=== PATIENT | female | born 1980 | race Native Hawaiian/Other Pacific Islander ===

== ENCOUNTER 2022-03-07 19:15 | Emergency (ER) | payer SELFPAY ==
[2022-03-07 19:32] VITALS: BP 134/83; PULSE 96; RESP 16; TEMP 35.6; O2SAT 98; BMI 51.0
[2022-03-07 21:21] LABS: Influenza A - CEPHEID Flu A POSITIVE (NEGATIVE); Influenza B - CEPHEID Flu B NEGATIVE (NEGATIVE); Respiratory Syncytial Virus Negative (Negative)
[2022-03-07 21:28] LABS: COVID-19 CEPHEID 4-PLEX PCR Negative (Negative)
--- NOTE | 2022-03-07 23:31 | ED.URI ---
HPI - URI/Sore Throat General Chief Complaint: Upper Respiratory Symptoms Stated Complaint: fever & cough for 2 months Time Seen by Provider: 03/07/22 23:10 Source: patient Mode of arrival: Ambulatory History of Present Illness HPI Narrative: This 41-year-old woman comes to the ER today with symptoms of cough and congestion for a month. She says her is hospitalized now in the ICU in [place]. She is been sick perpetually for these last 2 months with cough and congestion and shortness of breath. Fever intermittently and most recently a number of days ago. She is had no vomiting, no diarrhea, no rash. She denies any chronic health conditions of any kind. She does not smoke cigarettes. Related Data Previous Rx's Medication Instructions Recorded azithromycin 250 mg tablet 250 mg PO SEE INSTRUCTIONS #6 tabs 01/26/17 (Zithromax) benzonatate 100 mg capsule 100 mg PO BIDP PRN #20 caps 01/26/17 (Tessalon Perles) oseltamivir 75 mg capsule (Tamiflu) 75 mg PO BID 5 days #10 caps 03/07/22 Allergies Allergy/AdvReac Type Severity Reaction Status Date / Time No Known Drug Allergies Allergy Verified 03/07/22 19:47 Review of Systems Review of Systems Narrative: Complete review of systems is negative other than as noted above. Patient History Social History Smoking Status: Unknown if ever smoked Smoking Status: Unknown if ever smoked alcohol intake frequency: holidays/special occasions only Substance Use Type: does not use Exam Narrative Exam Narrative: GENERAL: Alert, cooperative and in no distress. HEAD: Atraumatic. Normocephalic. EYES: Sclera are clear without icterus. Extraocular movements are full. ENT: No rhinorrhea. Oropharynx is moist. Mouth exam is benign. NECK: Supple. Full range of motion. CARDIOVASCULAR: Normal rate and rhythm without murmur gallop or rub. RESPIRATORY: Almost completely clear with some scattered expiratory wheezing in the right base. No rales. GASTROINTESTINAL: Abdomen soft, non-tender, nondistended. EXTREMITIES: No edema, full range of motion. No obvious trauma. BACK: Normal inspection, no CVA tenderness. NEURO: Nonfocal examination, normal speech SKIN: No rash or erythema of visible areas PSYCH: Normally oriented. Normal range of affect. Appropriate behavior Initial Vital Signs Initial Vital Signs: Vital Signs Temperature 96.0 F L 03/07/22 19:32 Pulse Rate 96 H 03/07/22 19:32 Respiratory Rate 16 03/07/22 19:32 Blood Pressure 134/83 03/07/22 19:32 Pulse Oximetry 98 03/07/22 19:32 Oxygen Delivery Method 03/07/22 19:32 Course Orders Ordered: ED Orders 03/07/22 19:49 Covid-19 + FLU A/B + RSV - PCR Stat Vital Signs Vital signs: Vital Signs - 8 hr 03/07/22 19:32 Temperature 96.0 F L Pulse Rate 96 H Respiratory Rate 16 Blood Pressure 134/83 Pulse Oximetry 98 Oxygen Delivery Method Room Air MDM - URI/Sore Throat Lab Data Labs: Lab Results 03/07/22 Range/Units 19:49 SARS-CoV-2 (PCR) Negative (Negative) Influenza A (RT-PCR) Flu a positive H (NEGATIVE) Influenza B (RT-PCR) Flu b negative (NEGATIVE) RSV (PCR) Negative (Negative) MDM Narrative Medical decision making narrative: Influenza a positive. Well-appearing with normal vital signs. Will treat with Tamiflu and recommend close outpatient follow-up. Discharge Plan Departure Patient Disposition: Home Clinical Impression: Influenza Instructions: DI for Influenza -- Adult Activity Restrictions/Additional Instructions: Trying to get extra rest. Drink lots of extra fluid. Tylenol or ibuprofen as needed for pain. Take Tamiflu as instructed twice daily for 5 days. Follow-up early next week if not improving. Follow-up right away if worse. Prescriptions: New oseltamivir [Tamiflu] 75 mg capsule 75 mg PO BID 5 Days Qty: 10 0RF No Action azithromycin [Zithromax] 250 MG tablet 250 mg PO SEE INSTRUCTIONS Qty: 6 0RF benzonatate [Tessalon Perles] 100 MG capsule 100 mg PO BIDP PRNQty: 20 1RF
[2022-03-08] VITALS: BP 128/80; PULSE 80; RESP 18; TEMP 36.8; O2SAT 98
== END 2022-03-07 23:50 | disposition home or self-care (01) ==
PROVIDERS: Emergency Provider Family Medicine Addiction Medicine
DX: J10.1 Influenza due to other identified influenza virus with other respiratory manifestations (principal); Z20.822 Contact with and (suspected) exposure to COVID-19
CPT/HCPCS: 0241U; 99281; 99282